=== PATIENT | male | born 1965 | race Caucasian/White ===

== ENCOUNTER 2021-08-30 00:22 | Outpatient (CLI) | payer OTHER, SELFPAY ==
--- NOTE | 2021-08-30 09:15 | DI.MRI_ITS ---
Exam(s) MR LUMBAR SPINE WO/W EXAM: MR LUMBAR SPINE WO/W CLINICAL HISTORY: LUMBROSACRAL RADICULOPATHY M54.17 RISING PSA ? METASTATIC DISEASE. TECHNIQUE: Multiplanar multisequence MRI of the Lumbar Spine was performed. CONTRAST MATERIAL: IV Contrast: 19 mL of Dotarem contrast administered. COMPARISON: CR XR LS SPINE 2-3 VIEWS from 07/30/2021 CR XR LS SPINE 2-3 VIEWS from 07/30/2021 FINDINGS: The examination is limited due to patient motion artifact. Bones: The last intervertebral disc space is designated the L5/S1 level for the numbering purpose of this examination. The vertebral body heights are well maintained. Alignment is satisfactory. The sig nal characteristics are unremarkable. Cord: The conus tip ends at the L1 level. It is of normal size and signal intensity. T12-L1: No disc herniations or bulges are present. No central spinal canal or neural foraminal stenos is. L1-2: No disc herniations or bulges are present. No central spinal canal or neural foraminal stenosis . L2-3: No disc herniations or bulges are present. No central spinal canal or neural foraminal stenosis . L3-4: There is a mild diffuse disc bulge. No central spinal canal or neural foraminal stenosis. L4-5: There is a diffuse disc bulge. Hypertrophic changes of the facets are seen. Minimal narrowing o f the central spinal canal is noted. No significant right neural foraminal stenosis. There is mild-to -moderate left neural foraminal stenosis. L5-S1: There is a mild diffuse disc bulge. There are degenerative changes of the facets. No significa nt central spinal canal stenosis is present. There is mild right neural foraminal narrowing. No signi ficant left neural foraminal narrowing. Soft tissues: The visualized SI joints and sacrum are well maintained. The paraspinal soft tissues ar e unremarkable. There is no evidence of suspicious enhancement. IMPRESSION: 1. No findings to suggest osseous metastatic disease. 2. Multilevel degenerative changes in the lumbar spine. Mild neural foraminal narrowing seen in the l ower lumbar spine at L4-5 and L5-S1 as described above. 3. The examination is limited due to patient motion artifact. DATA REPOSITORY:
[2021-08-30] MEDS: Normal Saline Flush 10 ML SYR IVP (11:02)
[2021-08-30] MEDS: Gadoterate meglumine 20 ML VIAL 19 ML IVP (11:03)
== END 2021-08-30 00:42 ==
PROVIDERS: Visit Provider Internal Medicine
DX: M54.17 Radiculopathy, lumbosacral region (principal); M48.07 Spinal stenosis, lumbosacral region; M47.816 Spondylosis without myelopathy or radiculopathy, lumbar region
CPT/HCPCS: 72158